=== PATIENT | male | born 1965 | race Caucasian/White ===

== ENCOUNTER 2017-08-22 07:07 | Day surgery (SDC) | payer OTHER ==
[~2017-08-22] VITALS: Ht 172.7 cm; Wt 94.1 kg
[2017-08-22] MEDS ORDERED: LOSARTAN (07:56)
[2017-08-22] MEDS ORDERED: OMEPRAZOLE (07:56)
[2017-08-22 07:58] VITALS: Ht 172.7 cm; Wt 94.1 kg
[2017-08-22 08:24] VITALS: BP 152/104; PULSE 83; RESP 18
[2017-08-22] MEDS ORDERED: PROPOFOL 20 ML ONE ×2 (09:23)
--- NOTE | 2017-08-22 09:28 | OPPN ---
Date/Time of Note Date/Time of Note DATE: 08/22/17 TIME: 09:27 Operative Report Preoperative Diagnosis Screening Postoperative Diagnosis Flat cecal polyp was removed using biopsy forceps 2 sigmoid colon polyps were removed using biopsy forceps as well as snare and electrocautery Internal hemorrhoid Operation/Procedure Performed Colonoscopy biopsy and polypectomy Surgeon see signature line paralegal assistant None Anesthesia: MAC Estimated blood loss: none Transfusion Required none Specimen Colon polyps Grafts/Implants none Complications none ANASTASIYA CHU MD Aug 22, 2017 09:28
--- NOTE | 2017-08-22 23:03 | GILP ---
DATE OF PROCEDURE: NAME OF PROCEDURE: Colonoscopy, biopsy and polypectomy. SURGEON: Anastasiya Cordova MD PREOPERATIVE DIAGNOSIS: Screening colonoscopy. POSTOPERATIVE DIAGNOSES: 1. Colonoscopy all the way to the cecum. 2. Flat cecal polyp was removed using biopsy forceps. 3. The patient had 2 sigmoid colon polyps and one of them was removed using biopsy forceps, another one with snare and electrocautery. 4. Internal hemorrhoids. INDICATION FOR THE PROCEDURE: Mr. Cesar Salazar is a 51-year-old male patient who was scheduled f or screening colonoscopy. The procedure and possible complications were well explained to the patient, he understood and conse nted to the procedure. DESCRIPTION OF PROCEDURE: Under the influence of anesthesia, the colonoscope was carefully introduc ed in the rectum and under direct vision, it was advanced all the way to the cecum. FINDINGS: The patient had a flat polyp in the cecum and it was removed using the biopsy forceps. H e had 2 sigmoid colon polyps and one of them was removed using the biopsy forceps, another one with snare and electrocautery. He was noted to have internal hemorrhoids. He tolerated the procedure very well and there was no complication from the procedure. At the end o f the procedure, he was awake with stable vital signs and he was discharged home to the care of his family. IMPRESSION: Please see postoperative diagnosis. PLAN: 1. Await histopathology report. 2. Next screening colonoscopy in 3 to 5 years depending upon the histopathology. Dictated By: ANASTASIYA FLYNN/LIVIA Conf#: [id number] DID#: [id number]
== END 2017-08-22 10:05 | disposition home or self-care (01) ==
LOC: GIL 07:07
PROVIDERS: ATTEND Internal Medicine Gastroenterology
DX: Z12.11 Encounter for screening for malignant neoplasm of colon (principal); D12.0 Benign neoplasm of cecum; D12.5 Benign neoplasm of sigmoid colon; K64.8 Other hemorrhoids; I10 Essential (primary) hypertension
CPT/HCPCS: 45380; 88305; Z7610

== ENCOUNTER 2017-12-25 05:58 | Emergency (ER) | END 2017-12-26 14:55 ==